=== PATIENT | male | born 1960 | race Asian ===

== ENCOUNTER 2025-04-13 15:30 | Outpatient (AMB) | payer BC, SELFPAY ==
--- NOTE | 2025-04-13 13:04 | MHC.PC.OV ---
Vital Signs 04/13/25 15:50 Height 5 ft 5.47 in Weight 206 lb BMI 33.8 BP 144/100 H Blood Pressure Location Lt brachial Position Sitting Respiration 18 Pulse 87 Pulse Source Pulse Oximeter Temp 97.4 F Temp Source Temporal Artery Scan Pulse Oximetry (%) 91 L Oxygen Delivery Method Room Air Intake Visit Reasons: new patient - see comments Medical Staff Physician Required: No Accompanied by: Self / Same As Patient Allergies No Known Allergies Allergy (Verified 04/13/25 13:09) Tobacco use date assessed: 04/13/25 Dental Screening Dental Screen Date: 04/13/25 Did you have a dental visit in the last 12 months?: Yes Did you have a dental problem in the last 6 months where you did not have access to dental care?: No Was dental information given to patient?: Patient has dentist [facility] Social History Housing: [place] Patient Tobacco Use Status: Former Tobacco user Years Smoked: 20 years-quit 15 years ago e-Cigarette/Vaping Use: Never Used service: No Current occupational status: employed Current occupation: [employer] Alcohol Use Questionnaire (AUDIT-C) 1. How often do you have a drink containing alcohol?: Monthly or less 2. How many drinks containing alcohol do you have on a typical day when you are drinking?: 1 or 2 3. How often do you have six or more drinks on one occasion?: Never Total Score: 1 Physical exam (Primary Care) Vital Signs: Last Vital Signs Temp 97.4 F 04/13/25 15:50 Pulse 87 04/13/25 15:50 Resp 18 04/13/25 15:50 BP 144/100 H 04/13/25 15:50 Pulse Ox 91 L 04/13/25 15:50 Oxygen Delivery Method Room Air 04/13/25 15:50 BMI result Body Mass Index 33.8 Tobacco/Smoking Status: Tobacco use Status Tobacco use date assessed 04/13/25 04/13/25 13:10 Patient Tobacco Use Status Former Tobacco user 04/13/25 15:53 e-Cigarette/Vaping Use Never Used 04/13/25 15:53 Coding Level of Care Code Admin Sign Off/No Billing Diagnoses Encounter for support and coordination of transition of care Z76.89 Assessment & Plan Assessment & Plan (1) Encounter for support and coordination of transition of care: Code(s): Z76.89 - Persons encountering health services in other specified circumstances Plan The patient presented to establish care as his long-term primary care physician of 40 years is retiring in May. During the visit, he reported chronic use of alprazolam 1 mg four times daily for anxiety, prescribed for many years by his previous provider. He expressed frustration and anxiety about the upcoming long-term, stating he had been unable to find another provider willing to continue this regimen. He described prior unsuccessful attempts to taper, noting symptoms such as confusion, agitation, and chest tightness when he tried to decrease from four to three daily doses. I explained in clear and direct terms that continuation of alprazolam at this high dose is unsafe, not consistent with evidence-based practice, and my prescribing ability (such high doses). I informed him that I would not be able to continue or renew his current benzodiazepine prescription, as doing so would carry significant risk for dependence, withdrawal complications, and professional liability. I emphasized that our goal is patient safety and transparency, and that my role would be to help him safely transition off this medication with appropriate specialist support. The patient expressed concern about withdrawal, stating, ?I?ll be sick, I?ll lose my job,? and repeatedly emphasized his need to continue working for two more years before long-term. I acknowledged his concerns empathetically and explained that a supervised taper through addiction medicine would minimize withdrawal risk. I also discussed that abrupt discontinuation or unsafe dosing adjustments could result in seizures or hospitalization, and that these medications should only be tapered under structured supervision. Which he was not agreeable to stating he could loose his job. When the patient suggested continuing at a lower dose (e.g., 3 mg/day), I reminded him that he had already experienced cognitive side effects (?forgetting things?) at that level and reiterated that continuing high-dose benzodiazepines was not a safe or acceptable option. I outlined that if we were to assist with tapering, the process would likely involve cross-tapering to diazepam for smoother dose reductions, decreasing incrementally over several months, and supplementing with non-benzodiazepine anxiolytics such as buspirone as clinically indicated. I informed the patient that I could refer him to the addiction medicine team at [facility] to begin this process and to psychiatry for concurrent management of his underlying anxiety disorder. I clarified that our clinic could assume his primary care only after he agreed with a taper and stabilized on alternative therapy. He was provided with contact information for both addiction medicine. During the conversation, the patient intermittently became defensive, stating, ?I?m not a junkie,? and expressing frustration that other providers in [place] had either declined to take him on or were soon retiring. I remained calm and professional throughout, reassuring him that the issue was not about character but about physiologic dependence, which is expected with long-term benzodiazepine use. I documented that I spent the visit educating the patient on the nature of benzodiazepine dependence, associated risks, and safe management options. I also clarified to the patient that this encounter would not be billed, as the purpose was strictly to provide counseling, review his situation, and ensure transparency before establishing care. He verbalized understanding and agreed to review the information provided regarding addiction medicine services.
[2025-04-13 15:50] VITALS: BP 144/100; PULSE 87; RESP 18; TEMP 36.3; O2SAT 91; BMI 33.8
--- OUTSIDE RECORDS SUMMARY | 2025-04-13 18:25 | XMS_ITS ---
[facility] Name [facility] Organization Unknown Results Test Name/Text Value Interpretation Date Range Source CREAT SERPL MCNC 0.7 mg/dL Normal 11/30/2023 0.7 - 1.3 [facility] Glomerular filtration rate/1.73 sq M. predicted 105.0 Normal 11/30/2023 60 - [facility] PSA SERPL-MCNC 1.7 ng/mL Normal 11/30/2023 0 - 4 [facility] ALBUMIN SERPL BCG MCNC 4.5 g/dL Normal 11/30/2023 3.5 - 5 [facility] ALBUMIN/GLOB SERPL MRTO 2.1 Normal 11/30/2023 [facility] ALP SERPL-CCNC 52.0 U/L Normal 11/30/2023 34 - 104 [facility] BILIRUB DIRECT SERPL MCNC 0.1 mg/dL Normal 11/30/2023 0 - 0.2 [facility] AST SERPL CCNC 23.0 U/L Normal 11/30/2023 5 - 40 [facility] PROT SERPL MCNC 6.6 g/dL Normal 11/30/2023 6.4 - 8.5 [facility] ALT SERPL CCNC 29.0 U/L Normal 11/30/2023 7 - 52 [facility] BILIRUB SERPL MCNC 0.5 mg/dL Normal 11/30/2023 0.3 - 1 [facility] 25(OH)D3+25(OH)D2 SerPl IA-mCnc 21.0 ng/mL Below low normal 11/30/2023 30 - 100 [facility] VIT B12 SER MCNC 287.0 pg/mL Normal 11/30/2023 180 - 914 [facility] URATE SERPL MCNC 5.5 mg/dL Normal 11/30/2023 3.5 - 8.5 CT [facility] POTASSIUM SERPL SCNC 4.1 mmol/L Normal 11/30/2023 3.5 - 5 .[facility] CHLORIDE [facility] 106.0 mmol/L Normal 11/30/2023 98 - 1 07 [facility] SODIUM SERPL SCNC 141.0 mmol/L Normal 11/30/2023 135 - 14 5 [facility] ANION GAP SERPL SCNC 10.0 mmol/L Normal 11/30/2023 5 - 14 [facility] HCO3 SER SCNC 25.0 mmol/L Normal 11/30/2023 24 - 32 [facility] RBC NO. BLD AUTO 4.67 M/uL Below low normal 11/30/2023 4.7 - 6 [facility] RDW RBC AUTO RTO 13.6 % Normal 11/30/2023 12.1 - 17.7 [facility] EOSINOPHIL NFR BLD AUTO 4.0 % Normal 11/30/2023 0 - 6 [facility] NEUTROPHILS NFR BLD AUTO 58.0 % Normal 11/30/2023 44 - 74 [facility] LYMPHOCYTES NFR BLD AUTO 29.1 % Normal 11/30/2023 20 - 48 [facility] MCHC RBC AUTO MCNC 34.8 g/dL Normal 11/30/2023 32 - 36 [facility] MCV RBC AUTO 93.6 fL Normal 11/30/2023 78 - 100 [facility] BASOPHILS IN BLOOD BY AUTOMATED COUNT 0.0 K/uL Normal 11/30/2023 0 - 0.2 [facility] WBC NO. BLD AUTO 4.5 K/uL Normal 11/30/2023 4 - 10.5 [facility] HGB BLD MCNC 15.2 g/dL Normal 11/30/2023 13.5 - 18 [facility] PMV BLD AUTO 7.7 fL Normal 11/30/2023 7.4 - 11.4 [facility] MONOCY[facility] NO. BLD AUTO 0.4 K/uL Normal 11/30/2023 0 - 0. 8 [facility] HCT VFR BLD AUTO 43.7 % Normal 11/30/2023 40 - [address] [facility] MONOCYTES NFR BLD AUTO 7.9 % Normal 11/30/2023 2 - 12 [facility] MCH RBC QN AUTO 32.5 pg Normal 11/30/2023 25 - 33 [facility] EOSINOPHIL NO. BLD AUTO 0.2 K/uL Normal 11/30/2023 0 - 0 .5 [facility] PLATELET NO. BLD AUTO 200.0 K/uL Normal 11/30/2023 150 - 450 [facility] DIFFERENTIAL TYPE AUTOMATED Normal 11/30/2023 C [facility] LYMPHOCYTES NO. BLD AUTO 1.3 K/uL Normal 11/30/2023 1 - 3.2 [facility] BASOPHILS NFR BLD AUTO 1.0 % Normal 11/30/2023 0 - 2 [facility] NEUTROPHILS NO. BLD AUTO 2.6 K/uL Normal 11/30/2023 1.8 - 7.8 [facility] LDLc SerPl Calc-mCnc 96.0 mg/dL Normal 11/30/2023 50 - 13 0 [facility] HDLC SERPL-MCNC 42.0 mg/dL Normal 11/30/2023 32 - 70 [facility] CHOLEST SERPL-MCNC 162.0 mg/dL Normal 11/30/2023 0 - 200 [facility] TRIGL SERPL-MCNC 119.0 mg/dL Normal 11/30/2023 - 150 [facility] GLUCOSE P FAST SERPL MCNC 95.0 mg/dL Normal 11/30/2023 70 - 99 [facility] BUN SERPL MCNC 19.0 mg/dL Normal 11/30/2023 9 - 20 CTT HS TSH SerPl DL<=0.005 mIU/L-aCnc 0.74 uIU/mL Normal 11/30/2023 0.45 - 5.33 [facility] History of Medication Use Medication Directions Dispensed Refills Start Date End Date Stat meloxicam 15 mg tablet Take 1 tablet every day by oral route. 09/07/2024 active sildenafiL (VIAGRA) 100 mg tablet Take 1 tablet (100 mg total) by mouth if needed. 08/20/2024 active Sodium Sulfate-Mag Sulfate-KCl (Sutab) 0313-950-571 MG Tab Take 12 tablets by mouth once. One dose of 12 tablets on the Day Prior to procedure. One dose of 12 tablets on the Day Of the procedure. 10/23/2023 active atorvastatin (LIPITOR) 40 mg tablet Take 1 tablet (40 mg total) by mouth 1 (one) time each day. 10/21/2023 active atorvastatin (LIPITOR) 40 MG tablet 10/21/2023 active fenofibrate micronized (LOFIBRA) 134 MG capsule 10/21/2023 active ALPRAZolam (XANAX) 1 mg tablet Take 1 tablet (1 mg total) by mouth 4 (four) times a day if needed for anxiety. Max Daily Amount: 4 mg 10/16/2023 active ALPRAZolam (XANAX) 1 MG tablet TAKE TABLETS BY MOUTH TAKE ONE TABLET BY MOUTH FOUR TIMES DAILY. 10/16/2023 active alprazolam 1 mg tablet TAKE TABLETS BY MOUTH TAKE ONE TABLET BY MOUTH FOUR TIMES DAILY. active amoxicillin 875 mg-potassium clavulanate 125 mg tablet TAKE 1 TABLET BY MOUTH TWICE A DAY active atorvastatin 40 mg tablet TAKE 1 TABLET BY MOUTH EVERY DAY active azithromycin 250 mg tablet TAKE 2 TABLETS BY MOUTH TODAY, THEN TAKE 1 TABLET DAILY FOR 4 DAYS DIRECTED active fenofibrate micronized 134 mg capsule TAKE 1 CAPSULE BY MOUTH EVERY DAY active methylprednisolone 4 mg tablets in a dose pack TAKE 6 TABLETS ON DAY 1 DIRECTED ON PACKAGE AND DECREASE BY 1 TAB EACH DAY FOR A TOTAL OF 6 DAYS active sildenafil 100 mg tablet TAKE 1 TABLET A S NEEDED DIRECTED active Sutab 1.479-0.188-0.225 gram tablet TAKE 12 TABLETS BY MOUTH ON THE DAY PRIOR TO PROCEDURE, AND TAKE 12 TABLETS THE DAY OF THE PROCEDURE active fenofibrate micronized (LOFIBRA) 134 mg capsule Take 1 capsule (134 mg total) by mouth 1 (one) time each day. active Problems Problem Status Onset Date Problem Type Date of Resolution Source Vitamin D deficiency, unspecified active EncounterDiagnosisAct [facility] Gastro-esophageal reflux disease without esophagitis active EncounterDiagnosisAct [facility] Anxiety disorder, unspecified active EncounterDiagnosisAct [facility] Unspecified asthma, uncomplicated active EncounterDiagnosisAct [facility] Unspecified osteoarthritis, unspecified site active EncounterDiagnosisAct [facility] Hyperlipidemia, unspecified active EncounterDiagnosisAct [facility] Encounter for screening for malignant neoplasm of prostate active EncounterDiagnosisAct [facility] Essential (primary) hypertension active EncounterDiagnosisAct [facility] H Pain active EncounterDiagnosisAct [facility] Traumatic hematoma of right lower leg, initial encounter active EncounterDiagnosisAct C [facility] Talipes planovalgus active 2024-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 ProblemAct [facility] Sprain of left ankle active 2024-09-07 ProblemAct [facility] Encounters Encounter Type Encounter Reason Primary Diagnosis Location Date Ambulatory [facility] 10/25/2024 Ambulatory [facility] 09/26/2024 Ambulatory [facility] 09/08/2024 Ambulatory [facility] 09/07/2024 Ambulatory [facility] 09/07/2024 Ambulatory [facility] 09/07/2024 Emergency LORI leg pain possible blood clot Pain, unspecified [facility] 08/23/2024 Ambulatory [facility] 08/17/2024 Ambulatory [facility] 04/05/2024 Ambulatory Essential (primary) hypertension Essential (primary) hypertension [facility] 11/30/2023 Ambulatory Hyperlipidemia, unspecified Hyperlipidemia, unspecified [facility] 03/23/2023 Ambulatory Encounter for screening for malignant neoplasm of prostate [facility] 12/11/2022 Care Team Organization Name Specialty Phone Email Start Date End [facility] Primary Care 04/09/[address] [facility] Primary Care 03/17/2025 [facility] 2024 [facility] 08/25/2024 [facility] 08/24/[address] [facility] Primary Care 12/24/2023 07/21/2024 [facility] Primary [facility] 10/22/2023 [facility] 202212/20/2024 [facility] 12/1112/11/[address] [facility] Primary Care 04/15/2022 07/21/2024
--- OUTSIDE RECORDS SUMMARY | 2025-04-13 18:25 | XMS_ITS | Data Portability ---
Author Organization [place] [facility] [place] Address [address] [place] [address] Care Team Providers Care Manager [employer] Name Role Phone JOSE M IGNACIO Primary Care Provider [phone] JOSE M IGNACIO Referring Provider [phone] Assessment Encounter Date Assessment Date Assessment LastModified by Organization Details LastModified Time 09/07/2024 09/07/2024 Acute ankle pain secondary to left ankle sprain that occurred 3 weeks ago with chronic sinus Tarsi syndrome. I recommended initial treatment with a cam boot for immobilization as well as a course of meloxicam. After being fit with the boot he has declined. He was shown an ASO which he has found to be more comfortable He will be out of work for 1 week and then may return without restrictions. Follow-up in 3 weeks for repeat assessment where we will obtain 2 view of the left foot to complete his flat foot series. Patient was prescribed an ASO brace for above diagnosis. The patient is ambulatory but has weakness and/or instability which requires stabilization from this semi-rigid / rigid orthosis to improve their function. Patient was seen and evaluated by Juliette Castanon PA-C in indirect conjunction with Documenting Provider: Nita Morgan MD He/She agrees with history, physical examination, tests/diagnostic imaging, and treatment plan [email or web address] Not available 09/07/2024 15:55:46 09/29/2024 09/29/2024 He remains symptomatic from his ankle sprain as well as his chronic sinus Tarsi. We discussed adding physical therapy or considering a cortisone injection neither of which he is interested in. He will continue with his ASO brace and at home exercises. He will follow-up in 6 weeks for repeat assessment. Patient was seen and evaluated by Juliette Castanon PA-C in indirect conjunction with Documenting Provider: Nita Morgan MD He/She agrees with history, physical examination, tests/diagnostic imaging, and treatment plan Not available 09/29/2024 15:42:46 Plan of Treatment Reminders Order Date Submit Date Provider Last Modified By Organization Details Last Modified Time Details Appointments None recorded. Lab None recorded. Referral None recorded. Procedures None recorded. Surgeries None recorded. Imaging XR, foot, 2 view 2024 025 [email or web address] [facility], [address], [place], [address], 16:30:50 XR, ankle, 3 or more view 2024 025 [email or web address] [facility], [address], [place], [address], 16:09:09 Medication Orders meloxicam 15 mg tablet 2024 025 [id number], [address], [place], [address], 15:42:10 Patient TargetsNo targets recorded. Patient Instructions Encounter Date Encounter Id Patient Instructions Last Modified By Organization Details Last Modified Time 09/07/2024 [id number] Weightbearing x-rays of the left ankle were obtained on 09/07/2024 which is negative for acute fracture., Mortise is anatomic. Collapse of Meary's line on the lateral x-ray. [email or web address] Not available 09/07/2024 15:37:54 09/29/2024 [id number] Weightbearing x-rays of the left ankle were obtained on 09/07/2024 which is negative for acute fracture., Mortise is anatomic. Collapse of Meary's line on the lateral x-ray. 2 additional views of the left foot were obtained which demonstrates uncovering of the talar head otherwise no acute fractures. Not available 09/29/2024 15:43:08 Reason for Referral None Reported. Problems Name Problem SNOMED Code Status Onset Date Resolution Date Notes Provider Name and Address Organization Details Recorded Time Sprain of left ankle 8053540887452 9105 Active 2024 JULIETTE CASTANON PA-C [address], [place], [address], [place] [facility], P 5 15:38:04 Talipes planovalgus 28014030 Active 2024 JULIETTE CASTANON PA-C [address], [place], [place], 8, [place] [facility], P 15:55:52 Problem Notes None recorded. Medical Equipment None Reported. Medications Name Sig Start Date Stop Date Status Note LastModified by Organization Details LastModified Time atorvastatin 40 mg tablet TAKE 1 TABLET BY MOUTH EVERY DAY active Not Available Not Available No t Available azithromycin 250 mg tablet TAKE 2 TABLETS BY MOUTH TODAY, THEN TAKE 1 TABLET DAILY FOR 4 DAYS DIRECTED active Not Available Not Available No t Available alprazolam 1 mg tablet TAKE TABLETS BY MOUTH TAKE ONE TABLET BY MOUTH FOUR TIMES DAILY. active Not Available Not Available No t Available meloxicam 15 mg tablet TAKE 1 TABLET BY MOUTH EVERY DAY active Not Available Not Available No t Available sildenafil 100 mg tablet TAKE 1 TABLET NEEDED DIRECTED active Not Available Not Available No t Available fenofibrate micronized 134 mg capsule TAKE 1 CAPSULE BY MOUTH EVERY DAY active Not Available Not Available No t Available methylprednis olone 4 mg tablets in a dose pack TAKE 6 TABLETS ON DAY 1 DIRECTED ON PACKAGE AND DECREASE BY 1 TAB EACH DAY FOR A TOTAL OF 6 DAYS active Not Available Not Available No t Available amoxicillin 875 mg-potassium clavulanate 125 mg tablet TAKE 1 TABLET BY MOUTH TWICE A DAY active Not Available Not Available No t Available Sutab 1.479-0.188-0 .225 gram tablet TAKE 12 TABLETS BY MOUTH ON THE DAY PRIOR TO PROCEDURE, AND TAKE 12 TABLETS THE DAY OF THE PROCEDURE active Not Available Not Available No t Available Vitals Date Recorded Body height Body mass index (BMI) Body weight Provider Name and Address Organization Details Last Updated DateTime 09/07/2024 170.18 cm 32.1 kg/m2 15120.44 g JULIETTE CASTANON PA-C [address], [place], [address], [place] [facility], P 09/07/2024 16:01:02 Date Recorded Body height Body mass index (BMI) Body weight Provider Name and Address Organization Details Last Updated DateTime 09/29/2024 170.18 cm 32.1 kg/m2 [address]2945.[address] [place] [facility], P 09/29/2024 14:48:32 Social History None recorded. Functional Status None recorded. Mental Status None recorded. Family History Nothing Reported. Medical History No medical history recorded. Past Encounters Encounter ID Performer Location Encounter Start Date Encounter Closed Date Diagnosis/Indication Diagnosis SNOMED-CT Code Diagnosis ICD10 Code Diagnosis IMO Codes Diagnosis Note [id number] JULIETTE CASTANON PA-C [address] [address] 09/07/2024 15:07:24 09/07/2024 16:09:09 Ankle pain 250664339 M25.572 [id number] Sprain of left ankle 264 8265683 4046146 S93.492A [id number] Talipes planovalgus 6855 7006 Q66.6 5617 [id number] MARTINEZ GODOY [address] [address] 09/29/2024 14:48:02 09/29/2024 15:12:30 Ankle pain 132223759 M25.572 [id number] Sprain of left ankle 436 5004974 1404129 S93.492A [id number] Talipes planovalgus 6855 7006 Q66.6 5617 Health Concerns Section Related Observation LastModified by Organization Detai ls LastModified Time None Recorded Concern Status LastModified by Organization Details LastModified Time None Recorded Advance Directives Directive None Recorded Payers Insurance Date Sequence Insurance Name Policy Number Policy Tate Covered Member ID Ttae Member ID Guarantor Name 11/07/2024 1 [place] [id number] Felix Hunter [id number] Felix Hunter Notes Date Note Type Note Provider Name and Address Organization Details Recorded Time 09/07/2024 text/html Date of Injury: mid august 2024 Felix Hunter is a 64-year-old male who presents for new patient evaluation regarding his left ankle. He reports chronic left ankle pain that was recently complicated by an inversion injury while in the yard 3 weeks ago. Since then he has had significantly worsening lateral ankle pain. He has been taking Motrin with no improvement in symptoms. He unfortunately works 9-hour days on his feet on concrete floors which worsens his pain. He recently purchased inserts but he is only use these for 1 week. His company does provide him with new footwear as needed. 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 Medical history significant for hypertension, asthma, GERD and vitamin d deficiency. JULIETTE CASTANON PA-C [address], [place], [address], [place] [facility], P 09/07/2024 16:01:16 09/29/2024 text/html Date of Injury: mid august 2024 Felix Hunter is a 64-year-old male who presents for repeat evaluation regarding his left ankle. Since his last visit he has made mild improvements. He has been wearing his brace especially while at work which has been helpful. He has been taking meloxicam but is unsure if this has helped. He continues to have pain at the end of his workdays with associated swelling. From 09/07/24 (TK): He reports chronic left ankle pain that was recently complicated by an inversion injury while in the yard 3 weeks ago. Since then he has had significantly worsening lateral ankle pain. He has been taking Motrin with no improvement in symptoms. He unfortunately works 9-hour days on his feet on concrete floors which worsens his pain. He recently purchased inserts but he is only use these for 1 week. His company does provide him with new footwear as needed. 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 Medical history significant for hypertension, asthma, GERD and vitamin d deficiency. Nita Morgan MD [address], [place], [address], [place] [facility], P 09/30/2024 13:59:09
--- OUTSIDE RECORDS SUMMARY | 2025-04-13 18:25 | XMS_ITS | Clinical Summary ---
Author Organization [facility] Address [address] [place] [address] Care Team Providers Care Materials Management Supervisor Name Role Phone Tessy Farfan MD Primary Care Provider [phone] Social History Tobacco Use Types Packs/Day Years Used Date Smoking Tobacco: Never Assessed Sex and Gender Information Value Date Recorded Sex Assigned at Not on file Gender Identity Not on file Sexual Orientation Not on file Job Start Date Occupation Industry Not on file Not on file Not on file Plan of Treatment Health Maintenance Due Date Last Done Comments COVID-19 Vaccine (#1) 1962 Depression Screening 1974 Preventative Health Evaluation 1980 DTap / Tdap / Td (1 - Tdap) 1981 Colon Cancer Screening (Colonoscopy) 2007 Shingrix-Zoster Vaccine (1 of 2) 2012 Influenza Vaccine (#1) 2025 RSV Adult > 60+ Yrs or Pregn ant (1 - 1-dose 75+ series) 2037 Hepatitis C Screening Completed 12/08/2018 Hepatitis B Vaccines Aged Out No long er eligible based on patient's age to complete this topic Pneumococcal Vaccine Aged Out No long er eligible based on patient's age to complete this topic RSV Ped < 20 months Aged Out No longe r eligible based on patient's age to complete this topic Care Teams Materials Management Supervisor Relationship Specialty Start Date End Date Tessy Farfan MD Miriam Dixon [address] [place] [address] PCP - General Pulmonary Disease 07/02/17
== END 2025-04-13 16:28 | disposition home or self-care (01) ==
PROVIDERS: PCP Student in an Organized Health Care Education/Training Program; Visit Provider Student in an Organized Health Care Education/Training Program
DX: Z76.89 Persons encountering health services in other specified circumstances (principal)

== ENCOUNTER 2025-04-18 15:12 | Outpatient (AMB) | payer BC, SELFPAY ==
--- NOTE | 2025-04-18 15:45 | A.OFFPSYCH_ITS ---
Intake Intake Visit Reasons: consultation Director Of Exhibits Required: No Allergies No Known Allergies Allergy (Verified 04/13/25 13:09) Medication List - Last Reconciled 04/18/25 by Sita Hutchinson APRN alprazolam 1 mg PO QID atorvastatin 40 mg PO DAILY fenofibrate micronized 134 mg PO DAILY melatonin 6 mg PO BEDTIME PRN sildenafil 100 mg PO HPI- Psychiatric Chief Complaint: consultation HPI Narrative: Pt referred by Dr Granados pt new PCP. Pt's previous PCP has been prescribing the pt alprazolam 1mg QID. Dr. Granados is highly concerned about the current dosage/frequency, and would like the pt to be tapered off the medication, and have his medication optimized. In session with PCP, pt expressed concerns of withdrawal, and need for some kind of medication to manage his anxiety so he can continue to work the next two years up until fdc. Julianna Schaeffer, property field adjuster, spoke with the pt at length regarding concerns with current medication, importance of a taper with monitoring by a health intensive care unit nurse, and optimization of medications to effectively and safely manage pt's anxiety. Pt reported he started to taper himself down on the alprazolam but feels anxious and says he has too much panic. He had been seeing previous PCP Dr Paredes since he was 18 years old. Pt reports anxiety and panic attacks started oon his 30's. He reports the medication is essential to him being able to work. He reports he has no side effects. He reports he has tried talk therapy but it was never helpful. Pt is high energy, verbose and has difficulty listening. His PHQ9= 0. His GAD7= 5. He reports symptoms in good contriol with 4mg of xanzx. He denies tobacco use, He denies THC use. he reports 1-2 drinks 1-2 times a month. He denies ever having used alcohol excessively. Past Psychiatric History: oupt meds from PCP sine 32 yrs old on xanax; no IPLOC. No suicde attemps; Pt denies history of aggressive behavior. Subjective Subjective Medication Compliance: Yes Side effects from medications: No Review of Systems Medical Review of Systems: unchanged Mental Status Exam Mental Status Exam Patient Appearance: Appropriate Patient Orientation: Person, Place, Time and Situation Level of Consciousness: Awake, Appropriate, Restless and Alert Patient Behavior: Appropriate, Talkative, Restless, Anxious and Good Eye Contact Mood Description: Anxious and Expansive Affect Description: Anxious and Expansive Patient Cognition Impaired: No Ability to Follow Directions: Fair (difficulty listening, interupts, talks excessively) Speech Pattern: Perseverating, Spontaneous Speech, Rapid and Excessive Memory Description: Intact Hallucinations: None Delusions: Not Present Thought Process: Distracted, Rumination and Goal Oriented (focused on medication ) Thought Content: positive for Goal Oriented (wanting no change to meds) and positive for Perseveration Judgement: Good Assessment and Plan Assessment & Plan (1) Generalized anxiety disorder with panic attacks: Status: Acute Code(s): F41.1 - Generalized anxiety disorder; F41.0 - Panic disorder [episodic paroxysmal anxiety] Plan recommend pt start lamictal 12.5mg daily in am and take 3.5 tablets of xanax (down from 4 tabs) daily for at least one month and then reduce to 3 tabs daily x 2 months and then reduce again as tolerated. Recommend he return in 6-8 weeks He does not need prescription as he has several months prescribed by previous PCP Medications: New lamotrigine (Lamictal) 25 mg PO DAILY 30 tabs 2RF 30 days Counseling and coordination of Care Pt. Self Management counseling: Exercise, Mod caffeine/ETOH intake, Muscle relaxation, Nutrition education and improvement and Problem solving Medication management counseling: Effectiveness, Side effects, Dosing range, Duration, Drug interaction, Adherence and Other (risks and alternatives) Diagnosis and Prognosis Counseling: Accuracy of diagnosis, Prognosis over time, Impact of diagnosis on life functions, Impact of family relationship, Problematic behaviors secondary to diagnosis and Adequacy of current interventions Details: I spent 90 minutes reviewing the record, seeing the patient and documenting in the medical record. Counseling provided to the patient/caregiver as outlined below. Addressed patient/caregiver concerns regarding current medication regime including effective adherence. Addressed patient/caregiver concerns regarding diagnosis and prognosis including accuracy of diagnosis, prognosis over time, impact of diagnosis. Addressed patient/caregiver concerns regarding impact of recent stressors. [facility] Social History Housing: [place] Patient Tobacco Use Status: Former Tobacco user Years Smoked: 20 years-quit 15 years ago e-Cigarette/Vaping Use: Never Used service: No Current occupational status: employed Current occupation: Last [employer] Social History: lives with who is disabled. works [employer] Has 34 yr old daughter from previous relationship Substance History: none Trauma History: denies Coding Level of Care Code Psych Diag Eval w/Med (21556) Diagnoses Generalized anxiety disorder with panic attacks F41.1; F41.0
--- OUTSIDE RECORDS SUMMARY | 2025-04-18 16:56 | XMS_ITS | Data Portability ---
Author Organization [place] [facility] [place] Address [address] [place] [address] Care Team Providers Care Economic Research Assistant Name Role Phone JOSE M IGNACIO Primary Care Provider JOSE M IGNACIO Referring Provider [phone] Assessment Encounter Date Assessment Date Assessment LastModified [...] physical examination, tests/diagnostic imaging, and treatment plan [email or web address] Not available 09/07/2024 15:55:46 09/29/2024 09/29/2024 He [...] physical examination, tests/diagnostic imaging, and treatment plan [email or web address] Not available 09/29/2024 15:42:46 Plan of Treatment Reminders Order Date Submit Date Provider Last Modified By Organization Details Last Modified Time Details Appointments None recorded. Lab None recorded. Referral None recorded. Procedures None recorded. Surgeries None recorded. Imaging XR, foot, 2 view 2024 025 [email or web address] [facility] [place] [facility], [address], [place], [address], 16:30:50 XR, ankle, 3 or more view 2024 025 [email or web address] [facility] [place] [facility], [address], [place], [address], 16:09:09 Medication Orders meloxicam [address] [facility] ([place] [place]acy #[id number], [address] [facility] [place], [address], 15:42:10 Patient TargetsNo targets recorded. Patient Instructions Encounter Date Encounter Id Patient Instructions Last Modified By Organization Details Last Modified Time 09/07/2024 [id number] Weightbearing x-rays of the left ankle were obtained on 09/07/2024 which is negative for acute fracture., Mortise is anatomic. Collapse of Meary's line on the lateral x-ray. [email or web address] Not available 09/07/2024 15:37:54 09/29/2024 [id number] Weightbearing x-rays of the left ankle were obtained on 09/07/2024 which is negative for acute fracture., Mortise is anatomic. Collapse of Meary's line on the lateral x-ray. 2 additional views of the left foot were obtained which demonstrates uncovering of the talar head otherwise no acute fractures. [email or web address] Not available 09/29/2024 15:43:08 Reason for Referral None Reported. 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 Medical [...] Updated DateTime 09/07/2024 170.18 cm 32.1 kg/m2 18134.44 g JULIETTE CASTANON PA-C [address], [place], [address], [place] [facility] [place] 09/07/2024 16:01:02 Date Recorded Body height Body mass index (BMI) Body weight Provider Name and Address Organization Details Last Updated DateTime 09/29/2024 170.18 cm 32.1 kg/m2 [address]754[address] [place] [facility] [place], P 09/29/2024 14:48:32 Social History None recorded. Functional Status None recorded. Mental Status None recorded. Family History Nothing Reported. Medical History No medical history recorded. Past Encounters Encounter ID Performer Location Encounter Start Date Encounter Closed Date Diagnosis/Indication Diagnosis SNOMED-CT Code Diagnosis ICD10 Code Diagnosis IMO Codes Diagnosis Note [id number] JULIETTE CASTANON PA-C [address] [address] 09/07/2024 15:07:24 09/07/2024 16:09:09 Ankle pain 478061874 M25.572 [id number] Sprain of left ankle 017 7328389 4058007 S93.492A 541643 [place] [facility] 6855 7006 Q66.6 5617 [id number] MARTINEZ GODOY [address] [address] 09/29/2024 14:48:02 09/29/2024 15:12:30 Ankle pain 620380445 M25.572 [id number] Sprain of left ankle 165 2854289 7888891 S93.492A 645132 [place] [facility] 6855 7006 Q66.6 5617 Health Concerns Section Related Observation LastModified by Organization Detai ls LastModified Time None Recorded Concern Status LastModified by Organization Details LastModified Time None Recorded Advance Directives Directive None Recorded Payers Insurance Date Sequence Insurance Name Policy Number Policy Tate Covered Member ID Tate Member ID Guarantor Name 11/07/2024 1 [place] [id number] Felix Hunter [id number] Felix Hunter Notes Date Note Type [...] JULIETTE CASTANON PA-C [address], [place], [address], [place] [facility] [place], [facility] 09/07/2024 16:01:16 09/29/2024 text/html Date of [...] Nita Morgan MD [address], [place], [address], [place] [facility] [place] 09/30/2024 13:59:09
--- OUTSIDE RECORDS SUMMARY | 2025-04-18 16:56 | XMS_ITS | Clinical Summary ---
Author Organization [facility] Address [address] [place] [address] Phone Care Team Providers Care Deli Associate Name Role Phone Tessy Farfan MD Primary Care Provider [phone] Allergies No known active allergies Medications atorvastatin (LIPITOR) 40 mg tablet Take 1 tablet (40 mg total) by mouth 1 (one) time each day. 10/21/2023 Active fenofibrate micronized (LOFIBRA) 134 mg capsule Take 1 capsule (134 mg total) by mouth 1 (one) time each day. Active ALPRAZolam (XANAX) 1 mg tablet Take 1 tablet (1 mg total) by mouth 4 (four) times a day if needed for anxiety. Max Daily Amount: 4 mg 10/16/2023 Active sildenafiL (VIAGRA) 100 mg tablet Take 1 tablet (100 mg total) by mouth if needed. 08/20/2024 Active Social History Tobacco Use Types Packs/Day Years Used Date Smoking Tobacco: Never Assessed Sex and Gender Information Value Date Recorded Sex Assigned at Male 08/23/2024 6:23 PM EDT Legal Sex Male 10:19 PM EST Gender Identity Male 08/23/2024 6:23 PM EDT Sexual Orientation Straight 08/23/2024 6: 23 PM EDT Obstetrics History Last Filed Vital Signs Vital Sign Reading Time Taken Comments Blood Pressure 167/99 08/23/2024 6:49 PM EDT Pulse 98 08/23/2024 6:49 PM EDT Temperature 36.7 C (98.1 F) 08/23/2024 6:49 PM EDT Respiratory Rate 20 08/23/2024 6:49 PM EDT Oxygen Saturation 95% 08/23/2024 6:49 PM EDT Inhaled Oxygen Concentration - - Weight 93 kg (205 lb) 08/23/2024 6:49 PM EDT Height 170.2 cm (5' 7 ) 08/23/2024 6:49 PM EDT Body Mass Index 32.11 08/23/2024 6:49 PM EDT Plan of Treatment Health Maintenance Due Date Last Done Comments Colorectal Cancer Screening: Colonoscopy 1962 Pneumococcal Vaccine: 50+ Years (1 of 1 - PCV) 2012 HIV Screening 05/10/2022 Hepatitis C Screening 05/10/2022 Social Influencers of Health Screening 05/10/2022 Depression Screening 06/08/2024 COVID-19 Vaccine ( season) 2025 06/14/2021, 11/14/2020, 10/24/2020 Influenza Vaccine (#1) 2025 , 01/30/2019, 04/08/2018, Additional history exists Cholesterol Screening (Lipid Panel) 11/29/2028 11/30/2023, 11/30/2023, 03/23/2023, Additional history exists DTaP,Tdap,and Td Vaccines (2 - Td or Tdap) 03/05/2032 03/05/2022 RSV Immunization Adult Patients (1 - 1-dose 75+ series) 2037 Zoster Vaccines Completed 02/01/2021, 11/29/2020 HIB Vaccines Aged Out No longer eligi ble based on patient's age to complete this topic HPV Vaccines Aged Out No longer eligi ble based on patient's age to complete this topic Hepatitis A Vaccines Aged Out No long er eligible based on patient's age to complete this topic Hepatitis B Vaccines Aged Out No long er eligible based on patient's age to complete this topic IPV Vaccines Aged Out No longer eligi ble based on patient's age to complete this topic MMR Vaccines Aged Out No longer eligi ble based on patient's age to complete this topic Meningococcal ACWY Vaccine Aged Out N o longer eligible based on patient's age to complete this topic Meningococcal B Vaccine Aged Out No l onger eligible based on patient's age to complete this topic RSV Immunization Patients Under 20 months Aged Out No longer eligible based on patient's age to complete this topic Varicella Vaccines Aged Out No longer eligible based on patient's age to complete this topic Insurance [facility] Care Teams Deli Associate Relationship Specialty Start Date End Date Tessy Farfan MD [address] [place] [address] PCP - General Pulmonary Disease 07/02/17
== END 2025-04-18 16:35 | disposition home or self-care (01) ==
LOC: HO.HOP 15:12
PROVIDERS: PCP Student in an Organized Health Care Education/Training Program; Visit Provider Clinical Nurse Specialist Psychiatric/Mental Health
DX: F41.1 Generalized anxiety disorder (principal); F41.0 Panic disorder [episodic paroxysmal anxiety]
CPT/HCPCS: 99499